=== PATIENT | female | born 1960 | race Two or more races ===

== ENCOUNTER 2019-07-11 07:41 | Day surgery (SDC) | payer BC ==
[2019-07-11] VITALS (8 sets, daily range): BP systolic 110–122; BP diastolic 53–73
[~2019-07-11] VITALS: Ht 160 cm; Wt 81.6 kg
[~2019-07-11 07:41] MED LIST: ALPRAZOLAM0.25 MG ORAL; CALCIUM600 M1 PO; GAVISCON ES TA1 EACH PO; MULTI-DAY VITA1 EAC1 ORAL; OMEGA 3-6-9 11200 MG PO; ZANTAC150 MG ORAL; ZONEGRAN100 MG ORAL
--- NOTE | 2019-07-11 07:50 | Anethesia Preoperative Eval ---
Anesthesia Pre-op PMH/ROS General Date of Evaluation: Jul 11, 2019 Time of Evaluation: 07:47 Anesthesiologist: belle ASA Score: ASA 2 Mallampati Score Class I : Soft palate, uvula, fauces, pillars visible Class II: Soft palate, uvula, fauces visible Class III: Soft palate, base of uvula visible Class IV: Only hard plate visible Mallampati Classification: Class II Surgeon: karel Diagnosis: gerd, abdominal pain Surgical Procedure: egd/colonoscopy Anesthesia History: none Social History: smoking - nonsmoker Family History: no anesthesia problems Allergies: Coded Allergies: BANANA (Verified Adverse Reaction, Severe, GI Upset , 07/11/19) Dairy (Verified Adverse Reaction, Severe, GI Upset , 07/11/19) SESAME SEED (Verified Adverse Reaction, Severe, GI Upset , 07/11/19) Medications: see eMAR Patient NPO?: Yes Past Medical History Gastrointestinal/Genitourinary: Reports: GERD Neurologic/Psychiatric: Reports: depression/anxiety, other - seizures Musculoskeletal/Integumentary: Reports: other - right shoulder tendon tear, back pain Anesthesia Pre-op Phys. Exam Physician Exam Last Vital Signs Date Time Temp Pulse Resp B/P (MAP) Pulse Ox O2 Delivery O2 Flow Rate FiO2 07/11/19 08:57 98.2 75 18 111/67 98 Room Air Constitutional: NAD Neurologic: CN 2-12 intact Cardiovascular: RRR Respiratory: CTA Gastrointestinal: S/NT/ND Airway Exam Mallampati Score: Class II MO: full Neck: flexible TMD: 2fb ROM: limited Anesthesia Pre-op A/P Risk Assessment & Plan Assessment: asa2 Plan: mac Status Change Before Surgery: No Pre-Antibiotics Drug: Jaclyn Zhou MD Jul 11, 2019 07:50
[2019-07-11] MEDS ORDERED: CELEXA20 MG ORAL (08:47)
[2019-07-11] MEDS ORDERED: LAMICTAL25 MG ORAL (08:47)
[2019-07-11] MEDS ORDERED: OMEPRAZOLE20 M3 ORAL (08:48)
[2019-07-11] MEDS ORDERED: Vit D PO (08:48)
[2019-07-11] MEDS ORDERED: LIDODERM700 M1 TOPIC (08:50)
[2019-07-11] MEDS ORDERED: Lidocaine 1% MPF 10mg/ml 5ml ONE (09:00)
[2019-07-11] MEDS ORDERED: LR 1000ml ONE (09:00)
[2019-07-11] MEDS ORDERED: Propofol 200mg/20ml IV ONE (09:00)
--- NOTE | 2019-07-11 09:13 | Short Stay Surgery H&P ---
History of Present Illness History of Present Illness Chief Complaint abdominal pains/GERDs/Screening colon. GEE Goodman is a 58 year old female who was admitted on for Gerds/ Abdominal Pain/Screening colon Patient History PAST MEDICAL HISTORY: (1) History of delivery (2) Seizure disorder Medication History Scheduled Citalopram Hydrobromide* (Celexa*), 10 MG ORAL DAILY, (Reported) Fish Oil/Fat No.8/Hrb Comb.137 ([place] 3-6-9 1,200 Mg Softgel), 1,200 MG PO DAILY , (Reported) Lamotrigine* (Lamictal*), 25 MG ORAL DAILY, (Reported) Lidocaine Patch* (Lidoderm Patch*), 1 PATCH TOPIC DAILY, (Reported) Multivitamin (Multi-Day Vitamins), 1 TAB ORAL DAILY, (Reported) Omeprazole (Omeprazole), 20 MG ORAL DAILY, (Reported) Zonisamide* (Zonegran*), 100 MG ORAL DAILY, (Reported) [Vit D], 1 TAB PO DAILY, (Reported) Discontinued Medications Alprazolam* (Xanax*), 0.25 MG ORAL TID, (Reported) Discontinued Reason: Pt stopped taking med Calcium Carbonate (Calcium), 1,200 MG PO da, (Reported) Discontinued Reason: Pt stopped taking med Magnesium Carbonate/Al Hydrox (Gaviscon Es Tablet Chew), 2 EACH PO THREE TIMES A DAY, (Reported) Discontinued Reason: Pt stopped taking med Ranitidine Hcl* (Zantac*), 150 MG ORAL DAILY, (Reported) Discontinued Reason: Pt stopped taking med Review of Systems Cardiovascular: Reports: no symptoms Respiratory: Reports: no symptoms Skeletal: Reports: no symptoms Genitourinary: Reports: no symptoms Neurologic: Reports: seizure Endocrine: Reports: no symptoms Hematologic: Reports: no symptoms Physical Exam Vital Signs Last Vital Signs Date Time Temp Pulse Resp B/P (MAP) Pulse Ox O2 Delivery O2 Flow Rate FiO2 07/11/19 08:57 98.2 75 18 111/67 98 Room Air Skin: normal HENT: normal Heart: normal Lungs: normal Abdomen: normal Extremities: normal Genitourinary: normal Plan Plan of Care Upper anad lower GI endoscopies with biopsies. Preop Interventions None. Summary of Findings See the reports. Attestation Are the patient's medical conditions optimized for surgery? Attestation Response: yes Ailyn Narvaez MD Jul 11, 2019 09:13
--- NOTE | 2019-07-11 09:14 | Pre-Procedure Note/Attestation ---
Pre-Procedure Note/Attestation Complete Prior to Procedure Planned Procedure: left Procedure Narrative: Examinations of the upper and the lower GI tract with obtaining biopsies. Indications for Procedure Pre-Operative Diagnosis: R/O Gastritis/Peptic Ulcer/polyps/colon tumors. Attestation I attest that I discussed the nature of the procedure; its benefits; risks and complications; and alternatives (and the risks and benefits of such alternatives ), prior to the procedure, with the patient (or the patient's legal community representative). I attest that, if there was a reasonable possibility of needing a blood transfusion, the patient (or the patient's legal community representative) was given the [place] Department [employer] standardized written summary, pursuant to the Rubin Donaldson Blood Safety Act ([place] Health and Safety Code # 1645, as amended). I attest that I re-evaluated the patient just prior to the surgery and that there has been no change in the patient's H&P, except as documented below: Ailyn Narvaez MD Jul 11, 2019 09:14
[2019-07-11] MEDS ORDERED: LR 1000ml 1,000 ML IVLG SCH (09:48)
--- NOTE | 2019-07-11 09:57 | Endoscopy Procedure Note ---
Endoscopy Procedure Note General Indication for Procedure: Abdominal pains/GERDs/Screening colon Procedures Performed: EGD - Completely normal Upper GI endoscopy, biopsy was taken per random from gastric body., colonoscopy - Diverticulosis of the left colon otherwise normal colonoscopy as examined upto the cecal base. Specimen: yes Pt Tolerated Procedure Well: Yes Estimated Blood Loss: none Anesthesia Anesthesiologist: Dr. Bush Anesthesia: moderate sedation Medications Medication Given: see anesthesia record Inserted Devices Implant(s) used?: No Quality Quality of Bowel Preparation: Good Did scope reach the cecum?: Yes Was there any complications?: No GI Core Measures 50 yrs or older w/o bx or poly: Yes 10yrs. F/U recommended: Yes If not recommended, why?: Med reason:<3 yrs.: System Reason:<3 yrs.: Last colonoscopy >= to 3yrs: Yes Ailyn Narvaez MD Jul 11, 2019 09:57
--- NOTE | 2019-07-11 09:58 | Discharge Instructions ---
Discharge Instructions Discharge Instructions Follow up with: See the docotor in office after two weeks. For Congestive Heart Failure Reminder Report to your physician any weight gain of 5 pounds or more in one week. Ailyn Narvaez MD Jul 11, 2019 09:58
[2019-07-11] MEDS ORDERED: DiphenhydrAMINE 50mg/ml Inj IVP PRN (10:00)
[2019-07-11] MEDS ORDERED: Midazolam 2mg/2ml Inj IVP PRN (10:00)
[2019-07-11] MEDS ORDERED: Atropine Inj 1mg/10ml Syr IV PRN (10:00)
[2019-07-11] MEDS ORDERED: fentaNYL 100 mcg/2 mL IV PRN (10:00)
--- NOTE | 2019-07-11 10:20 | Immediate Post-Op Evaluation ---
Immediate Post-Op Evalulation Immediate Post-Op Evalulation Procedure: egd/colonoscopy w/bx Date of Evaluation: Jul 11, 2019 Time of Evaluation: 10:14 IV Fluids: 300ml lr Blood Products: none Estimated Blood Loss: negligible Blood Pressure Systolic: 116 Blood Pressure Diastolic: 63 Pulse Rate: 72 Respiratory Rate: 18 O2 Sat by Pulse Oximetry: 99 Temperature (Fahrenheit): 97.5 Pain Score (1-10): 0 Nausea: No Vomiting: No Complications none Patient Status: awake, reacts, patent Hydration Status: adequate Drug: Jaclyn Zhou MD Jul 11, 2019 10:20
--- NOTE | 2019-07-11 10:22 | 48 Hour Post Anesthesia Eval ---
Post Anesthesia Evaluation Procedure: egd/colonoscopy w/bx Date of Evaluation: Jul 11, 2019 Time of Evaluation: 10:16 Blood Pressure Systolic: 114 0: 65 Pulse Rate: 67 Respiratory Rate: 18 Temperature (Fahrenheit): 97.5 O2 Sat by Pulse Oximetry: 99 Airway: patent Nausea: No Vomiting: No Pain Intensity: 0 Hydration Status: adequate Cardiopulmonary Status: stable Mental Status/LOC: patient returned to baseline Post-Anesthesia Complications: none Follow-up care needed: N/A Jaclyn Bush MD Jul 11, 2019 10:22
--- NOTE | 2019-07-11 14:45 | Operative Note - Dictated ---
DATE OF OPERATION: 07/11/2019 SURGEON: Ailyn Narvaez M.D. PROCEDURE: Esophagogastroduodenoscopy with biopsy. PREOPERATIVE DIAGNOSES: Abdominal pain, history of chronic gastroesophageal reflux. POSTOPERATIVE DIAGNOSIS: Completely normal upper GI endoscopy. Biopsy was taken per random from gastric body. MEDICATION USED: Per Dr. Chavira, anesthesiologist. INSTRUMENT: GIF Olympus upper GI video endoscope. DESCRIPTION OF PROCEDURE: The patient after arriving in the endoscopy unit, was told about risks and benefits of the procedure, which she accepted and signed informed consent. At this time, she was put in the left lateral decubitus position. After adequate IV sedation, the scope was gently passed through the cricopharyngeal area, was lodged into the upper esophagus and gradually was advanced towards gastroesophageal junction. The entire length of esophagus looked normal. No abnormalities were found. There were no ulcers, tumors, polyps etc. GE junction also looked normal completely without any evidence of Lundy's or hiatal hernia. At this time, the scope was advanced into the stomach. Gastric cavity was distended with insufflation of air and gradually the areas of the fundus and the body and the antrum were examined, which revealed completely normal finding with normal gastric mucosal coverage. There were no polyps, tumors, ulcers, inflammatory process, etc. The retroflexion maneuver was also applied and the area of the gastroesophageal junction was examined in a closer fashion, which revealed normal findings. At this time, one random biopsy from gastric body was obtained and subsequently scope was approached towards the antrum from there into the pylorus. First and second portion of duodenum were found to be also completely normal. Finally, scope was pulled out and the procedure was terminated. The patient tolerated the procedure well. Ailyn Narvaez M.D. DR: DORI JOB#: [id number] CC:
--- NOTE | 2019-07-11 15:00 | Operative Note - Dictated ---
DATE OF OPERATION: 07/11/2019 SURGEON: Ailyn Narvaez M.D. PROCEDURE: Total colonoscopy. PREOPERATIVE DIAGNOSIS: Screening colonoscopy. POSTOPERATIVE DIAGNOSIS: Diverticulosis of the left colon, otherwise complete normal total colonoscopy. No evidence of polyps, tumors, or colitis found. MEDICATION USED: Per Dr. Chavira, anesthesiologist. INSTRUMENT: GIF Olympus video colonoscope. DESCRIPTION OF PROCEDURE: The patient after arriving in the endoscopy unit, was told about risks and benefits of the procedure, which she accepted and signed informed consent. At this time, she was put in the left lateral decubitus position. After adequate IV sedation, the scope was gently passed through the anal area and the examination of this section along with the rectum revealed completely normal findings. No evidence of major hemorrhoids or tumors, polyps, or colitis was found. At this time, the scope was advanced through rather redundant left colon, which revealed evidence of numerous diverticular lesions. However, there was no any evidence of inflammatory process, tumors, stricture, or polyps, etc. Gradually, the scope reached towards the splenic flexure, from there to the transverse colon and hepatic flexure and finally guided into the right colon all the way to the base of the cecum. All these areas were completely normal including the terminal ileum as well. The colon cleanup was adequate and at this time within 6 minutes the scope was gradually pulled out and re-evaluation of the colon did not reveal any other abnormalities except the diverticular lesions of the left side of the colon as mentioned. The patient tolerated the procedure well and left the endoscopy room in a good condition. Ailyn Narvaez M.D. DR: ADDISON JOB#: [id number] CC:
== END 2019-07-11 11:00 | disposition home or self-care (01) ==
LOC: GAS 07:41
DX: Z12.11 Encounter for screening for malignant neoplasm of colon (principal); K57.90 Diverticulosis of intestine, part unspecified, without perforation or abscess without bleeding; R10.9 Unspecified abdominal pain; K21.9 Gastro-esophageal reflux disease without esophagitis; F32.9 Major depressive disorder, single episode, unspecified; F41.9 Anxiety disorder, unspecified; G40.909 Epilepsy, unspecified, not intractable, without status epilepticus
CPT/HCPCS: 43239; 45378; J2704; J7120; 94003; 94150